=== PATIENT | female | born 1955 | race Caucasian/White ===

== ENCOUNTER → 2022-01-31 | Outpatient (CLI) | payer MEDICARE, OTHER | LOC: KOH-I 15:36 | DX: M25.562 Pain in left knee (principal); M17.12 Unilateral primary osteoarthritis, left knee | CPT/HCPCS: 73562 ==

== ENCOUNTER → 2022-02-09 | Outpatient (CLI) | payer MEDICARE, OTHER | LOC: EMI 11:01 | DX: M25.562 Pain in left knee (principal); R60.0 Localized edema | CPT/HCPCS: 73721 ==